=== PATIENT | female | born 1960 | race Caucasian/White ===

== ENCOUNTER → 2016-12-09 | Outpatient (CLI) | payer BC ==
--- NOTE | 2016-12-09 12:46 | XR ---
EXAMINATION TYPE: XR pelvis AP view DATE OF EXAM: 12/09/2016 10:52 AM CLINICAL HISTORY: pain TECHNIQUE: Single view the pelvis is submitted. FINDINGS: No evidence for fracture, dislocation or bony lesion. Joint spaces are well-preserved. S I joints appear symmetric. IMPRESSION: 1. No acute fracture or dislocation seen. ICD 10 NO FRACTURE, INITIAL EVALUATION
--- NOTE | 2016-12-09 12:47 | XR ---
EXAMINATION TYPE: XR Hip Complete LT DATE OF EXAM: 12/09/2016 10:52 AM CLINICAL HISTORY: pain TECHNIQUE: AP and frogleg views of the left hip are obtained. COMPARISON: None. FINDINGS: There is no acute fracture/dislocation evident. The joint space appears within normal li mits. The overlying soft tissue appears unremarkable. IMPRESSION: 1. There is no acute fracture or dislocation. ICD 10 NO FRACTURE, INITIAL EVALUATION
== END ==
LOC: RADXRMAIN 10:32
PROVIDERS: ATTEND Family Medicine
DX: R10.2 Pelvic and perineal pain (principal)
CPT/HCPCS: 72170; 73502

== ENCOUNTER → 2017-01-07 | Outpatient (CLI) | payer BC ==
--- NOTE | 2017-01-07 10:19 | XR ---
EXAMINATION TYPE: XR femur LT DATE OF EXAM: 01/07/2017 10:14 AM COMPARISON: NONE HISTORY: Pain TECHNIQUE: 4 views FINDINGS: There is slight lateral cortical thickening along the proximal diaphysis of the left femur. Remaining portion of the osseous structures are intact. Mild arthropathy of the hip joints. No acute fracture or dislocation. IMPRESSION: 1. Mild cortical thinning proximal diaphysis of the femur. Recommend correlation with bone scan if th is is the area of clinical abnormality.
== END | disposition home or self-care (01) ==
LOC: RADXRMAIN 09:50
PROVIDERS: ATTEND Family Medicine
DX: R93.7 Abnormal findings on diagnostic imaging of other parts of musculoskeletal system (principal); M79.669 Pain in unspecified lower leg

== ENCOUNTER → 2017-01-07 | Outpatient (CLI) | payer BC ==
--- NOTE | 2017-01-07 14:43 | US ---
EXAMINATION TYPE: US venous doppler duplex LE LT DATE OF EXAM: 01/07/2017 2:32 PM COMPARISON: US CLINICAL HISTORY: 56-year-old female M79.669 Pain in unspecified lower leg. Intermittent left thigh p ain x 3 months SIDE PERFORMED: Left TECHNIQUE: The lower extremity deep venous system is examined utilizing real time linear array sonog landry with graded compression, doppler sonography and color-flow sonography. FINDINGS: VESSELS IMAGED: External Iliac Vein (EIV) Common Femoral Vein Deep Femoral Vein Greater Saphenous Vein * Femoral Vein Popliteal Vein Small Saphenous Vein * Proximal Calf Veins (* superficial vessels) Left Leg: Appears negative for DVT IMPRESSION: No evidence for DVT within the left lower extremity imaged from the groin to the upper calf.
== END | disposition home or self-care (01) ==
LOC: RADUSWWP 14:10
PROVIDERS: ATTEND Family Medicine
DX: M79.669 Pain in unspecified lower leg (principal)

== ENCOUNTER → 2017-01-15 | Outpatient (CLI) | payer BC ==
--- NOTE | 2017-01-15 14:13 | NM ---
EXAMINATION TYPE: NM bone/joint limited DATE OF EXAM: 01/15/2017 1:58 PM COMPARISON: NONE HISTORY: Left femoral pain TECHNIQUE: After the intravenous administration of 25.8 mCi Tc 99m MDP. Images acquired 3 hours pos t injection. Multiple views of both femurs are submitted. There is no abnormal uptake within the visualized osseous structures to suggest acute process. IMPRESSION: NO ACUTE OSSEOUS ABNORMALITY.
== END ==
LOC: RADNMMAIN 10:24
PROVIDERS: ATTEND Family Medicine
DX: M89.9 Disorder of bone, unspecified (principal)
CPT/HCPCS: 78300; A9503

== ENCOUNTER 2021-11-07 15:50 | Emergency (ER) | payer BC, MEDICARE ==
[2021-11-07 16:00] VITALS: RESP 18; TEMP 97.7
[2021-11-07] MEDS ORDERED: HYDROmorphone 1 MG/ML 1 ML SYRINGE IM STA (16:10)
--- NOTE | 2021-11-07 16:11 | ED ---
General Adult HPI - General Chief complaint: Extremity Injury, Lower Stated complaint: Knee pain Time Seen by Provider: 11/07/21 16:02 Source: patient, RN notes reviewed, old records reviewed Mode of arrival: wheelchair Limitations: no limitations - History of Present Illness Initial comments: 61-year-old female presents to the emergency room with complaints of right knee pain. [facility] and had imaging done and diagnosed with osteoarthritis. Patient states that she continues to have pain worse with ambulation. She does have an appointment for a second opinion on Wednesday. Denies any calf pain, fevers or injury. -: week(s) Location: right, lower extremity (Knee) Severity scale (1-10): 10 Quality: constant Consistency: constant Improves with: immobilization Worsens with: other (Weightbearing) Associated Symptoms: denies other symptoms - Related Data Home Medications Medication Instructions Recorded Confirmed Atorvastatin Calcium 10 mg PO HS 08/23/14 12/03/15 Esomeprazole Magnesium [NexIUM] 40 mg PO QAM 08/23/14 12/03/15 Montelukast Sodium 10 mg PO HS 08/23/14 12/03/15 Hydrocodone/Chlorphen P-Stirex 5 ml PO HS 08/24/14 12/03/15 [Tussionex] Fluticasone/Vilanterol [Breo 1 puff INHALATION RT-DAILY 11/22/15 12/03/15 Ellipta 100-25 Mcg Inhaler] Calcium Carbonate [Calcium] 1,200 mg PO DAILY 12/03/15 12/03/15 Ranitidine HCl [Zantac] 150 mg PO BID 12/03/15 12/03/15 Previous Rx's Medication Instructions Recorded Azithromycin [Zithromax] 500 mg PO DAILY #5 tab 12/05/15 Benzonatate [Tessalon Perles] 200 mg PO TID #42 capsule 12/05/15 Budesonide [Pulmicort] 0.5 mg IH BID #60 ampul.neb 12/05/15 amLODIPine [Norvasc] 5 mg PO DAILY #30 tab 12/05/15 predniSONE 20 mg PO DIRECTED #60 tab 12/05/15 Meloxicam [Mobic] 7.5 mg PO DAILY 30 Days #30 tab 11/07/21 Allergies Allergy/AdvReac Type Severity Reaction Status Date / Time amoxicillin AdvReac SORE THROAT Verified 12/03/15 12:17 iodine AdvReac Rash/Hives Verified 12/03/15 12:17 Sulfa (Sulfonamide AdvReac Rash/Hives Verified 12/03/15 12:17 Antibiotics) Review of Systems ROS Statement: Those systems with pertinent positive or pertinent negative responses have been documented in the HPI. ROS Other: All systems not noted in ROS Statement are negative. Past Medical History Past Medical History: Asthma, GERD/Reflux, Hyperlipidemia, Hypertension, Pneumonia Additional Past Medical History / Comment(s): , bronchitis's, bronchiectasis, tracheobroncomalacia, pseudomonas bilateral lungs, sinus problems, hiatal hernia, chronic back pain, UTI, enlarged heart, dislocated R shoulder, scoliosis, numerous fractures-bilateral ankles x 2, bilateral femurs, bilateral feet-had bone bx to find out why so many fx's and found to be due to medication. History of Any Multi-Drug Resistant Organisms: None Reported Past Surgical History: Appendectomy, Cholecystectomy, Hysterectomy, Joint Replacement, Orthopedic Surgery, Tonsillectomy Additional Past Surgical History / Comment(s): BRONCHOSCOPY X 4 with last one being done 11/26/15, RT elbow SURGERY X 7 with eventual RT ELBOW REPLACEMENT, LT elbow SURGERY for tendonitis, L foot BUNIONECTOMY x2 with plate and screws,. COLONOSCOPY Past Anesthesia/Blood Transfusion Reactions: Previous Problems w/ Anesthesia, Postoperative Nausea & Vomiting (PONV) Additional Past Anesthesia/Blood Transfusion Reaction / Comment(s): SLOW TO WAKE UP Past Psychological History: No Psychological Hx Reported Past Alcohol Use History: None Reported Past Drug Use History: None Reported - Past Family History Mother Family Medical History: Deep Vein Thrombosis (DVT), Hypertension Additional Family Medical History / Comment(s): Mother of DVT at age 70 yrs. Father History Unknown: Yes General Exam Limitations: no limitations General appearance: alert, in no apparent distress Head exam: Present: atraumatic, normocephalic, normal inspection Course Vital Signs 11/07/21 11/07/21 15:58 18:45 Temperature 97.7 F Pulse Rate 77 78 Respiratory 18 18 Rate Blood Pressure 152/85 145/64 O2 Sat by Pulse 98 99 Oximetry Medical Decision Making - Medical Decision Making Patient presents with right knee pain ongoing for several weeks worsening today stating unable to bear weight. She denies any other joint pains. [facility] and told that this is osteoarthritis. She did bring in a copy of her xr report from October 20. She denies any trauma or calf pain. There is no evidence of erythema, signs of infection or concern for septic joint. Patient states she does have an appointment with an orthopedic doctor on Wednesday for second opinion. X-ray of the right knee shows mild to moderate tricompartmental osteoarthrosis. There is trace joint effusion, no fracture or dislocation. Patient was prescribed meloxicam, states she has used it in the past with relief. She was given a take-home bottle Tylenol 3 for additional pain control directed to return to the emergency room with any worsening pain or inability to ambulate. Case discussed with Dr. Cool. Disposition Clinical Impression: Knee pain, right Disposition: HOME SELF-CARE Condition: Good Instructions (If sedation given, give patient instructions): Knee Pain (ED) Additional Instructions: Take the meloxicam as prescribed once a day for inflammation. Rest, ice and elevate right knee to help with inflammation and pain. Keep your appointment with the orthopedic doctor as scheduled on Wednesday. Use your walker or wheelchair as needed. Prescriptions: Meloxicam [Mobic] 7.5 mg PO DAILY 30 Days #30 tab Is patient prescribed a controlled substance at d/c from ED?: No Referrals: Paul Ozuna MD [Primary Care Provider] - 1-2 days Time of Disposition: 18:21
--- NOTE | 2021-11-07 18:05 | XR ---
EXAMINATION TYPE: XR knee complete RT DATE OF EXAM: 11/07/2021 COMPARISON: 01/07/2017 HISTORY: 61 years Female. STUDY INDICATION GIVEN: pain . TECHNIQUE: AP, oblique and lateral radiographs of the right knee IMPRESSION: [id number] tricompartmental osteoarthrosis. Trace joint effusion no acute fracture or dislocati on.
[2021-11-07] MEDS ORDERED: ACET/COD 300 MG/30 MG STARTER PACK 6 TAB BTL PO STA (18:30)
[2021-11-07 18:47] VITALS: BP 145/64; PULSE 78
== END 2021-11-07 18:47 | disposition home or self-care (01) ==
LOC: EC 15:50
DX: M17.11 Unilateral primary osteoarthritis, right knee (principal); J45.909 Unspecified asthma, uncomplicated; K21.9 Gastro-esophageal reflux disease without esophagitis; E78.5 Hyperlipidemia, unspecified; I10 Essential (primary) hypertension; Z88.2 Allergy status to sulfonamides; Z87.440 Personal history of urinary (tract) infections; Z90.49 Acquired absence of other specified parts of digestive tract; Z90.710 Acquired absence of both cervix and uterus
CPT/HCPCS: 99283; 96372; 73562; J1170

== ENCOUNTER → 2023-03-02 | Outpatient (CLI) | payer MEDICARE ==
--- NOTE | 2023-03-02 14:58 | CT ---
EXAMINATION TYPE: CT sinus wo con CT DLP: 528 mGycm, Automated exposure control for dose reduction was used. DATE OF EXAM: 03/02/2023 2:01 PM COMPARISON: 06/11/2014 . CLINICAL INDICATION:Female, 62 years old with history of [id number]; , chronic sinusitis TECHNIQUE: Multiple thin axial images were obtained through the paranasal sinuses without the use of IV contrast. Additional coronal and sagittal reformatted images were submitted for evaluation. Contrast used: none Oral contrast used: none FINDINGS: Frontal sinuses: Normally developed and aerated. Frontal Recess: Clear Maxillary Sinuses: Normally developed and aerated. Maxillary Infundibula(OMC): Clear, No Charles cells identified. Ethmoid sinuses: Normally developed and aerated. Ethmoidal notch: Protected and abutting the lateral lamina. Sphenoid sinuses: Normally developed with mild mucosal thickening in the right sphenoid sinus. There is sellar sphenoid sinus pneumatization without evidence of dehiscence. No dehiscence of carotid can al. No evidence of optic nerve dehiscence within the sphenoid sinus. No evidence of Onodi cells. Sph enoethmoidal recesses: Clear. Nasal septum: Within normal limits.. Nasal Turbinates: Within normal limits. . Mastoid air cells & middle ears: The air cells are clear. The middle ears are grossly unremarkable. Modified Soft tissues & Brain: Partially seen without gross abnormality. Globes are intact. Other: Cribriform plate demonstrates symmetric Keros classification type 2 cribriform plate. No evidence of bony dehiscence of skull base. Lamina papyracea is intact without evidence of remote orbital fracture or orbital prolapse into the e thmoid sinus. IMPRESSION: 1. No significant mucosal sinus disease. No significant change from prior. 2. The ostiomeatal units, frontonasal and sphenoethmoidal recesses are clear.
== END | disposition home or self-care (01) ==
LOC: RADCTMAIN 13:30
PROVIDERS: ATTEND Otolaryngology
DX: J32.9 Chronic sinusitis, unspecified (principal)
CPT/HCPCS: 70486

== ENCOUNTER → 2023-03-02 | Outpatient (CLI) | payer MEDICARE ==
[2023-03-03 12:18] LABS: Albumin 4.3 d/dL (3.8-4.9); BUN/Creat Ratio 15.44 Ratio (12.00-20.00); Blood Urea Nitrogen 13.9 mg/dL (9.0-27.0); Calcium 9.4 mg/dL (8.7-10.3); Carbon Dioxide 22.5 mmol/L (21.6-31.8); Chloride 106 mmol/L (96-109); Glucose 114 mg/dL (70-110); Phosphorus 3.9 mg/dL (2.4-5.1); Sodium 142 mmol/L (135-145)
== END | disposition home or self-care (01) ==
LOC: LABWHC1 13:44
PROVIDERS: ATTEND Otolaryngology
DX: E03.9 Hypothyroidism, unspecified (principal)
CPT/HCPCS: 36415; 80048; 80069; 82607; 84443

== ENCOUNTER → 2023-06-24 | Outpatient (CLI) | payer MEDICARE ==
--- NOTE | 2023-06-24 16:10 | BD ---
EXAMINATION TYPE: Axial Bone Density DATE OF EXAM: 06/24/2023 CLINICAL HISTORY: 63 years old Female. ICD-10 CODE: Z78.0 asymptomatic menopausal state Height: 60.5 Weight: 277 FRAX RISK QUESTIONS: Family History (Parent hip fracture): no History of Fracture in Adulthood: yes wrists, femur, shoulder, lt foot, bilat ankles Secondary Osteoporosis: no Rheumatoid Arthritis: no RISK FACTORS HISTORY OF: History of Wrist Fracture: yes When: unsure more than 20 + years Surgery to Hip(right/left): yes, bilat When: 2017 Family History of Osteoporosis: yes, mother Active: semi-active Diet low in dairy products/other sources of calcium: no Postmenopausal woman: yes Lost more than 2 inches in height since high school: no Frequent falls: no Poor Health: no MEDICATIONS: Additional Medications: yes blood thinner, hbp meds EXAM MEASUREMENTS: Bone mineral densitometry was performed using the [employer] System. Bone mineral density as measured about the Lumbar spine is: ----- L1-L4(G/cm2): 0.918 T Score Values are as follows: ----- L1: -2.0 ----- L2: -2.4 ----- L3: -2.3 ----- L4: -2.2 ----- L1-L4: -2.2 Z Score Values are as follows: ----- L1: -1.5 ----- L2: -2.0 ----- L3: -1.9 ----- L4: -1.7 ----- L1-L4: -1.8 Bone mineral density has: Decreased -7.9% since study of: 01/17/2014 FRAX%s: not done... bilat hip replacements IMPRESSION: Osteopenia (T Score between -2.5 and -1). There is slightly increased risk of fracture and the patient may be considered for treatment. Re-Screen 2-5 years. NOTE: T-SCORE=SD OF THE YOUNG ADULT MEAN.
== END | disposition home or self-care (01) ==
LOC: RADBDWWP 11:35
PROVIDERS: ATTEND Internal Medicine
DX: Z13.820 Encounter for screening for osteoporosis (principal); M85.88 Other specified disorders of bone density and structure, other site; Z78.0 Asymptomatic menopausal state
CPT/HCPCS: 77080